=== PATIENT | female | born 2000 | race Caucasian/White ===

== ENCOUNTER 2022-09-13 00:49 | Emergency (ER) | payer BC ==
[2022-09-13] MEDS ORDERED: diphenhydrAMINE 25 MG CAP ONE (01:51)
[2022-09-13] MEDS ORDERED: Famotidine 20 MG TAB ONE (02:32)
[2022-09-13] MEDS ORDERED: predniSONE 20 MG TAB ONE (02:33)
== END 2022-09-13 04:03 | disposition home or self-care (01) ==
LOC: ERS 00:49
DX: L50.0 Allergic urticaria (principal); R10.9 Unspecified abdominal pain
CPT/HCPCS: 99283; J7512